=== PATIENT | female | born 1970 | race Caucasian/White ===

== ENCOUNTER 2023-01-11 15:16 | Inpatient (IN) ==
[2023-01-11] MEDS ORDERED: CARDIZEM INJ IVP STA (15:37)
[2023-01-11] MEDS ORDERED: LOPRESSOR PO STA (15:45)
--- NOTE | 2023-01-11 15:51 | ED.PDOC ---
General ED Provider: Dr. GILDARDO AGRAWAL MD Chief Complaint: Shortness of Air Stated Complaint: shortness of breath on and off for one week, got worse since thursday former smoker, smoked for 20 years, quit 10 years ago recent URI, treated with antibiotic father had Afib No thyroid issues, drinks alcohol occasionally, no drug use No fever,chest pain, abdominal pain, diarrhea or urinary symptoms Time Seen by Provider: 01/11/23 15:31 Information Source: Patient Nursing and Triage Documentation Reviewed and Agree: Yes Does patient meet sepsis criteria?: No System Inflammatory Response Syndrome: Not Applicable Sepsis Protocol: For patient's 13 years and over: Temp is 96.8 and below OR 101 and greater Pulse >90 BPM Resp >20/minute Acutely Altered Mental Status Are patient's symptoms suggestive of a new infection, such as: -Pneumonia -Skin, Soft Tissue -Endocarditis -UTI -Bone, Joint Infection -Implantable Device -Acute Abdominal Infection -Wound Infection -Meningitis -Blood Stream Catheter Infection -Unknown Review of Systems Review Of Systems Constitutional: Reports No symptoms Eyes: Reports No symptoms Ears, Nose, Mouth, Throat: Reports No symptoms Respiratory: Reports Short of air Cardiac: Reports Irregular heart rate GI: Reports No symptoms : Reports No symptoms Musculoskeletal: Reports No symptoms Skin: Reports No symptoms Neurological: Reports No symptoms Endocrine: Reports No symptoms Hematologic/Lymphatic: Reports No symptoms All Other Systems: Reviewed and Negative Physical Exam Physical Exam Appearance: Reports Well-appearing Ill-appearing: None Pain Distress: None Eyes: Reports DESIREE ENT: Reports Ears normal, Nose normal and Oropharynx normal Neck: Supple Respiratory: Reports Airway patent, Breath sounds clear and Breath sounds equal Cardiovascular: Reports No murmur, Irregular rhythm and Tachycardia GI/: Reports Soft, Nontender and No masses Musculoskeletal: Reports Normal strength and ROM intact Skin: Reports Warm and Normal color Neurological: Reports Sensation intact and Motor intact Psychiatric: Reports Affect appropriate Interpretation EKG Interpretation Time of EKG #1: 15:30 Rate: Tachy Rhythm: Other (Afib) [place]: NL ST Segment: Normal Interpretation: Afib w RVR, no specific st changs, no signs of ischemia EKG Interpretation By: ED Physician Time of EKG #2: 17:14 Rate: Tachy Rhythm: Other (Afib) Ectopy: None [place]: NL ST Segment: Normal EKG Interpretation: A fib w RVR, non specific t wave abnormality, no acute ischemia EKG Interpretation By: ED Physician Critical Care Note Critical Care Note Total Critical Care Time (mins): 0 Course Course 01/11/23 15:35 01/11/23 15:35 Orders, Labs, Meds: Lab Review 01/11/23 01/11/23 15:35 17:35 WBC 5.00 RBC 4.64 Hgb 14.3 Hct 43.8 MCV 94.4 MCH 30.8 MCHC 32.6 RDW Coeff of Gabriel 15.6 H Plt Count 267 Immature Gran % (Auto) 0.2 Neut % (Auto) 70.6 Lymph % (Auto) 21.4 Grady % (Auto) 6.0 Eos % (Auto) 1.4 Baso % (Auto) 0.4 Neut # (Auto) 3.5 Lymph # (Auto) 1.1 Grady # (Auto) 0.3 L Eos # (Auto) 0.1 Baso # (Auto) 0.0 Immature Gran # (Auto) 0.0 Sodium 138.2 Potassium 3.04 L Chloride 103.5 Carbon Dioxide 28.6 Anion Gap 9.14 BUN 8.0 Creatinine 0.75 Estimated GFR (MDRD) 81.00 BUN/Creatinine Ratio 10.66 Glucose 110.9 H Calcium 9.01 Total Bilirubin 1.10 AST 114.8 H ALT 120.0 H Alkaline Phosphatase 152.9 H Troponin I < 0.012 Total Protein 7.55 Albumin 4.33 Globulin 3.22 Albumin/Globulin Ratio 1.34 TSH 4.000 Urine Color Dark Urine Clarity Clear Urine pH 6.0 Ur Specific [place] 1.020 Urine Protein Negative Urine Glucose (UA) Negative Urine Ketones Negative Urine Blood Negative Urine Nitrite Negative Urine Bilirubin 1+ H Urine Urobilinogen 2.0 H Ur Leukocyte Esterase Negative Urine Opiates Screen Negative Ur Oxycodone Screen Negative Urine Methadone Screen Negative Ur Propoxyphene Screen Negative Ur Barbiturates Screen Negative U Tricyclic Antidepress Positive H Ur Phencyclidine Scrn Negative Ur Amphetamine Screen Positive H U Methamphetamines Scrn Negative U Benzodiazepines Scrn Negative Urine Cocaine Screen Negative U Cannabinoids Screen Positive H Orders Category Date Time Status EKG-(ED ONLY) Stat CARDIO 01/11/23 15:31 Completed EKG-(ED ONLY) Stat CARDIO 01/11/23 17:14 Completed Monitor [ED JET MAN APPLIED] .ONCE EMERGENCY 01/11/23 15:35 Active OXYGEN [ED APPLY O2] .ONCE EMERGENCY 01/11/23 15:35 Active CBC W/ AUTO DIFF Stat LAB 01/11/23 15:35 Completed CMP [COMPREHENSIVE METABOLIC PANEL] Stat LAB 01/11/23 15:35 Completed DRUG SCREEN (RAPID FOR ED) [DRUG SCREEN, URINE, RAPID] LAB 01/11/23 17:35 Completed Stat TROPONIN I Stat LAB 01/11/23 15:35 Completed TSH [THYROID STIMULATING HORMONE] Stat LAB 01/11/23 15:35 Completed URINALYSIS C & S IF INDICATED Stat LAB 01/11/23 17:35 Completed Diltiazem HCl [Cardizem Inj] Meds 01/11/23 15:37 Discontinued 15 mg IVP ONCE STA Metoprolol Tartrate [Lopressor] Meds 01/11/23 15:45 Discontinued 25 mg PO ONCE STA CXR [CHEST, 1V AP ONLY] Stat RADS 01/11/23 15:32 Completed Medications Generic Name Dose Route Start Last Admin Trade Name Freq PRN Reason Stop Dose Admin Enoxaparin Sodium 40 mg 01/11/23 21:00 Enoxaparin Sodium 40 Mg/0.4 Ml Syr SUBCUT DAILY JOSE Diltiazem HCl 125 mg/ Sodium 125 mls @ 5 mls/hr 01/11/23 19:00 01/11/23 19:16 Chloride IV 5 mg/hr TITRATION JOSE 5 mls/hr Administration Protocol 5 MG/HR Metoprolol Tartrate 50 mg 01/12/23 09:00 Metoprolol Tartrate 50 Mg Tablet PO BID JOSE Discontinued Medications Generic Name Dose Route Start Last Admin Trade Name Freq PRN Reason Stop Dose Admin Diltiazem HCl 15 mg 01/11/23 15:37 01/11/23 15:46 Diltiazem Hcl Inj 25 Mg/5 Ml Vial IVP 01/11/23 15:38 15 mg ONCE STA Administration Metoprolol Tartrate 25 mg 01/11/23 15:45 01/11/23 15:49 Metoprolol Tartrate 25 Mg Tablet PO 01/11/23 15:46 25 mg ONCE STA Administration Potassium Chloride 60 meq 01/11/23 18:46 01/11/23 19:20 Potassium Chloride 20 Meq Tab PO 01/11/23 18:47 60 meq ONCE ONE Administration Vital Signs: Temp Pulse Resp BP Pulse Ox 01/11/23 15:21 97.1 F L 149 H 22 H 152/119 H 95 . 52 years old female with a history of COPD former smoker smoked for 20 years quit 10 years ago who came to the ER for shortness of breath. As per patient the shortness of breath has been going on and off for 1 week but got worse since last Thursday. Patient drinks alcohol occasionally, no drugs no thyroid problems EKG showed A-fib with RVR at a rate of 150 pushed IV 15 mg of Cardizem heart rate is improving now around 115. I spoke with Dr. Olivares vice president of software engineering regarding the patient and he recommended to start the patient on Cardizem drip and metoprolol 50 mg twice and Lovenox 40 mg subcutaneous once a day and echocardiogram admit her to inpatient service, I also spoke with our hospitalist Danny and discussed the case with her and she agreed to admit the patient to her services. EDUARDO Risk Score EDUARDO Risk Score: Risk Score Odds of by 30D 0 0.1 (0.1-0.2) 1 0.3 (0.2-0.3) 2 0.4 (0.3-0.5) 3 0.7 (0.6-0.9) 4 1.2 (1.0-1.5) 5 2.2 (1.9-2.6) 6 3.0 (2.5-3.6) 7 4.8 (3.8-6.1) Discharge Plan Discharge Patient Disposition: ADMITTED INPATIENT Discharge Problem: Transaminitis, Atrial fibrillation with RVR Did you review [place] [employer] DIRECTOR for ALL controlled substances?: Not Applicable ED Provider: GILDARDO AGRAWAL Condition: Stable Physician Progress Note: []
--- NOTE | 2023-01-11 15:52 | DI ---
EXAM: SINGLE VIEW CHEST. HISTORY: Shortness of breath COMPARISON: None. FINDINGS: The heart is on the upper limits of normal in size. Pulmonary vascularity is within normal limits. A small right pleural effusion is seen. Bibasilar interstitial opacities are seen. No cholo dence of pneumothorax is seen. Osseous structures are unremarkable. IMPRESSION: Small right pleural effusion. Bibasilar interstitial opacities which can be seen with interstitial edema.
[2023-01-11 15:56] LABS: BASOPHILS % (AUTO) 0.4 % (0.0-3.0); EOSINOPHILS # (AUTO) 0.1 K/ul (0.0-0.7); EOSINOPHILS % (AUTO) 1.4 % (0.0-7.0); HEMATOCRIT 43.8 % (37.0-47.0); HEMOGLOBIN 14.3 g/dl (12.0-16.0); IMMATURE GRANULOCYTE % (AUTO) 0.2 % (0.0-5.0); LYMPHOCYTES # (AUTO) 1.1 K/uL (0.60-3.4); LYMPHOCYTES % (AUTO) 21.4 (10.0-50.0); MEAN CORPUSCULAR HEMOGLOBIN 30.8 pg (27.0-31.0); MEAN CORPUSCULAR HGB CONC 32.6 (31.8-35.4); MEAN CORPUSCULAR VOLUME 94.4 fl (81.0-99.0); MONOCYTES # (AUTO) 0.3 K/uL (0.4-2.0); NEUTROPHILS # (AUTO) 3.5 K/ul (2.0-6.9); NEUTROPHILS % (AUTO) 70.6 % (42.2-75.2); PLATELET COUNT 267 10^3/uL (140-440); RDW COEFFICIENT OF VARIATION 15.6 % (11.6-14.8); RED BLOOD COUNT 4.64 10^6/ul (4.20-5.40)
[2023-01-11 16:08] LABS: ALBUMIN 4.33 g/dL (3.5-5.0); ALKALINE PHOSPHATASE 152.9 U/L (38-126); ASPARTATE AMINO TRANSFERASE 114.8 U/L (14-36); CALCIUM 9.01 mg/dL (8.4-10.2); CARBON DIOXIDE 28.6 mmol/L (22-30.0); CHLORIDE 103.5 mmol/L (98-107); CREATININE 0.75 mg/dL (0.60-1.30); GLUCOSE 110.9 mg/dL (74-106); POTASSIUM 3.04 mmol/L (3.5-5.1); SODIUM 138.2 mmol/L (134.5-145); TOTAL PROTEIN 7.55 g/dL (6.3-8.2)
[2023-01-11 16:21] LABS: TROPONIN I < 0.012 ng/ml (0.0000-0.120)
[2023-01-11 17:43] LABS: BILIRUBIN,URINE 1+ (NEGATIVE); CLARITY,URINE Clear (CLEAR); COLOR,URINE Dark (YELLOW); GLUCOSE, URINE (UA) Negative (NEGATIVE); KETONES,URINE Negative (NEGATIVE); LEUKOCYTE ESTERASE ,URINE Negative (NEGATIVE); NITRITE,URINE Negative (NEGATIVE); PROTEIN,URINE Negative (NEGATIVE); URINE, BLOOD Negative (NEGATIVE)
[2023-01-11 17:53] LABS: AMPHETAMINE SCREEN,URINE POSITIVE (NEGATIVE); BARBITURATE SCREEN,URINE NEGATIVE (NEGATIVE); BENZODIAZEPINES SCREEN,URINE NEGATIVE (NEGATIVE); CANNABINOID SCREEN,URINE POSITIVE (NEGATIVE); COCAIN SCREEN,URINE NEGATIVE (NEGATIVE); METHADONE URINE SCREEN NEGATIVE (NEGATIVE); METHAMPHETAMINES SCREEN,URINE NEGATIVE (NEGATIVE); OPIATE SCREEN,URINE NEGATIVE (NEGATIVE); OXYCODONE URINE SCREEN NEGATIVE (NEGATIVE); PHENCYCLIDINE SCREEN,URINE NEGATIVE (NEGATIVE); PROPOXYPHENE URINE SCREEN NEGATIVE (NEGATIVE); TRICYCLIC ANTIDEPRESSANTS URIN POSITIVE (NEGATIVE)
[2023-01-11] MEDS ORDERED: K-DUR PO ONE (18:46)
[2023-01-11] MEDS: CARDIZEM 125 MG in SODIUM CHLORIDE 100ML 100 ML IV SCH (19:16)
[2023-01-11] MEDS ORDERED: TYLENOL PO PRN (20:24)
[2023-01-11] MEDS: ZOFRAN 4 MG/2 ML IVP PRN (20:27)
[2023-01-11 20:44] VITALS: BMI 36.3
[2023-01-11] MEDS: LOVENOX SUBCUT SCH (21:20)
[2023-01-12] MEDS: ZOFRAN 4 MG/2 ML IVP PRN ×2 (04:32→11:02)
[2023-01-12 05:25] LABS: BASOPHILS % (AUTO) 0.7 % (0.0-3.0); EOSINOPHILS # (AUTO) 0.1 K/ul (0.0-0.7); EOSINOPHILS % (AUTO) 1.4 % (0.0-7.0); HEMATOCRIT 39.2 % (37.0-47.0); HEMOGLOBIN 12.3 g/dl (12.0-16.0); IMMATURE GRANULOCYTE % (AUTO) 0.5 % (0.0-5.0); LYMPHOCYTES # (AUTO) 0.9 K/uL (0.60-3.4); LYMPHOCYTES % (AUTO) 20.1 (10.0-50.0); MEAN CORPUSCULAR HEMOGLOBIN 30.2 pg (27.0-31.0); MEAN CORPUSCULAR HGB CONC 31.4 (31.8-35.4); MEAN CORPUSCULAR VOLUME 96.3 fl (81.0-99.0); MONOCYTES # (AUTO) 0.3 K/uL (0.4-2.0); MONOCYTES % (AUTO) 7.4 (0-10); NEUTROPHILS % (AUTO) 69.9 % (42.2-75.2); PLATELET COUNT 242 10^3/uL (140-440); RDW COEFFICIENT OF VARIATION 15.7 % (11.6-14.8); RED BLOOD COUNT 4.07 10^6/ul (4.20-5.40); WHITE BLOOD COUNT 4.33 K/ul (4.6-10.2)
[2023-01-12 05:39] LABS: ALANINE AMINOTRANSFERASE 106.8 U/L (0-35); ALBUMIN 3.51 g/dL (3.5-5.0); ALKALINE PHOSPHATASE 133.3 U/L (38-126); ASPARTATE AMINO TRANSFERASE 108.2 U/L (14-36); BILIRUBIN,TOTAL 1.17 mg/dL (0.2-1.3); BLOOD UREA NITROGEN 9.2 mg/dL (7-17); CALCIUM 8.49 mg/dL (8.4-10.2); CHLORIDE 106.3 mmol/L (98-107); CREATININE 0.66 mg/dL (0.60-1.30); POTASSIUM 3.65 mmol/L (3.5-5.1); SODIUM 134.7 mmol/L (134.5-145); TOTAL PROTEIN 6.27 g/dL (6.3-8.2)
[2023-01-12 05:40] LABS: CHOLESTEROL 119.6 mg/dL (0-200); HDL CHOLESTEROL 56.5 mg/dL (35-80); TRIGLYCERIDES 100.6 mg/dL (0-150)
[2023-01-12] MEDS ORDERED: K-DUR PO ONE (08:27)
[2023-01-12] MEDS: LOPRESSOR PO SCH ×2 (09:02→20:18)
[2023-01-12] MEDS: LOVENOX SUBCUT SCH (09:02)
--- NOTE | 2023-01-12 09:03 | PCM ---
Date of Service Date Seen by Provider: 01/12/23 Time Seen by Provider: 08:30 Admit Day/Time Admission Date: 01/11/23 Admission Time: 18:28 Reason for Admission Chief Complaint: A-FIB Hospital Provider Hospital Provider: INEZ WILKERSON PA-C, [facility] Primary Care Physician Primary Care Physician: JENNYFER SELLERS [facility] Discussed With Consultants Discussed With: Dr. Marisa Olivares, Cardiology History of Present Illness History of Present Illness: Patient is a 52 year old female with pmhx of iron deficiency anemia, depression, anxiety, vitamin d deficiency who presented to ER with 1 week history of shortness of breath and palpitations on and off. It was progressively getting worse since /Thursday. She thought her iron was low again and trying to wait it out to see her PCP this week. She denies chest pain, edema, or personal cardiac history. In the ER she was found to be in A fib RVR HR 150s. She was given cardizem 15 mg IVP then Metoprolol 25 PO and lovenox 40. Was later started on Cardizem drip. CXR negative. Labs unremarkable. K+ on low end of normal. Dr. Reji Olivares was consulted from ER and will see patient. Patient admitted to SCU. This AM patient is feeling much better. HR in 80s. Nurse tried to wean Cardizem drip down but her HR went to above 100, cardizem drip increased back to 8. Pt denies cp, sob, palpitations this morning. Eating breakfast. LFTs mildly elevated, unable to get US until tomorrow. Patient has concerns regarding staying tonight due to having pets at home. Case Discussed With Case Discussed With: Patient's case was discussed with the ER Physicians, Dr. Angulo Sayed. [facility] Medical History Anemia D64.9 - Anemia, unspecified (ICD-10) Depression F32.A - Depression, unspecified (ICD-10) Vitamin D deficiency E55.9 - Vitamin D deficiency, unspecified (ICD-10) Surgical History (Updated 01/12/23 @ 09:05 by INEZ WILKERSON PA-C) H/O: hysterectomy Z90.710 - Acquired absence of both cervix and uterus (ICD-10) History of cholecystectomy Z90.49 - Acquired absence of other specified parts of digestive tract (ICD- 10) Family History FATHER Myocardial infarct CHF (congestive heart failure) Hypertension Mother Hypertension Social History (Updated 01/12/23 @ 09:06 by INEZ WILKERSON PA-C) Smoking and tobacco status: Former smoker Tobacco: How many years used: 20 How long ago did patient quit smokin years ago Details: Occasional social drink Substance use type: does not use Additional social history: Lives at home alone with her cat. Allergies Allergies Allergy/AdvReac Type Severity Reaction Status Date / Time cephalosporins AdvReac Uncoded 01/11/23 15:26 Current Medications Home Medications desvenlafaxine succinate 50 mg tablet,extended release 24 hr (Pristiq) 50 mg PO DAILY 01/11/23 [History Confirmed 01/11/23 Last Taken Unknown] gabapentin 300 mg capsule 300 mg PO TID 01/11/23 [History Confirmed 01/11/23 Last Taken Unknown] omeprazole 20 mg capsule,delayed release 20 mg PO DAILY 01/11/23 [History Confirmed 01/11/23 Last Taken Unknown] bupropion HCl 300 mg 24 hr tablet, extended release (Wellbutrin XL) 300 mg PO DAILY 01/12/23 [History Confirmed 01/12/23 Last Taken 01/11/23] Home Acetaminophen (Acetaminophen 325 Mg Tablet) 650 mg PO Q4H PRN PRN Reason: Pain Bupropion HCl (Bupropion Hcl 150 Mg Tab.Er.24h) 300 mg PO DAILY [facility] Last Admin: 01/12/23 11:29 Dose: 300 mg Diltiazem HCl (Diltiazem Hcl 60 Mg Tablet) 60 mg PO Q12HR [facility] Last Admin: 01/12/23 10:53 Dose: 60 mg Enoxaparin Sodium (Enoxaparin Sodium 40 Mg/0.4 Ml Syr) 40 mg SUBCUT DAILY [facility] Last Admin: 01/12/23 09:02 Dose: 40 mg Gabapentin (Gabapentin 300 Mg Capsule) 300 mg PO TID [facility] Last Admin: 01/12/23 11:29 Dose: 300 mg Diltiazem HCl 125 mg/ Sodium (Chloride) 125 mls @ 5 mls/hr IV TITRATION [facility]; Protocol Last Admin: 01/12/23 09:36 Dose: 8 mg/hr, 8 mls/hr Metoprolol Tartrate (Metoprolol Tartrate 50 Mg Tablet) 50 mg PO BID [facility] Last Admin: 01/12/23 09:02 Dose: 50 mg Non-Formulary Medication (Desvenlafaxine Succinate [Pristiq]) 50 mg PO DAILY [facility] Last Admin: 01/12/23 11:30 Dose: Not Given Omeprazole (Omeprazole 20 Mg Capsule.Dr) 20 mg PO QDAC [facility] Ondansetron HCl (Ondansetron Hcl/Pf 4 Mg/2 Ml Sdv) 4 mg IVP Q6H PRN PRN Reason: Nausea / Vomiting Last Admin: 01/12/23 11:02 Dose: 4 mg Discontinued Medications Amiodarone HCl (Amiodarone Hcl 200 Mg Tablet) 200 mg PO ONCE ONE Stop: 01/12/23 11:00 Last Admin: 01/12/23 11:29 Dose: 200 mg Diltiazem HCl (Diltiazem Hcl Inj 25 Mg/5 Ml Vial) 15 mg IVP ONCE STA Stop: 01/11/23 15:38 Last Admin: 01/11/23 15:46 Dose: 15 mg Metoprolol Tartrate (Metoprolol Tartrate 25 Mg Tablet) 25 mg PO ONCE STA Stop: 01/11/23 15:46 Last Admin: 01/11/23 15:49 Dose: 25 mg Potassium Chloride (Potassium Chloride 20 Meq Tab) 60 meq PO ONCE ONE Stop: 01/11/23 18:47 Last Admin: 01/11/23 19:20 Dose: 60 meq Potassium Chloride (Potassium Chloride 20 Meq Tab) 20 meq PO ONCE ONE Stop: 01/12/23 08:28 Last Admin: 01/12/23 09:02 Dose: 20 meq Review of Systems Constitutional: Denies Fatigue, Recent Weight Loss, Recent Weight Gain, Chills or Weakness Head: Reports Normocephalic and Atraumatic Eyes: Reports No symptoms Ears: Reports No symptoms Nose: Reports No symptoms Mouth: Reports No symptoms Throat: Reports No symptoms Cardiovascular: Reports Irregular Heartbeat and Palpitations; Denies Chest pain or Chest Pressure Respiratory: Reports Shortness of air; Denies Cough or Wheeze Gastrointestinal: Denies Nausea, Vomiting, Diarrhea or Constipation Genitourinary: Denies Dysuria or Frequency Hematology: Reports Anemia Neurological: Denies Headache, Dizziness, Syncope or Loss of Conciousness Psychiatric: Reports Depression and Anxiety; Denies Suicidal Physical examination Most Recent Vital Signs: Most Recent Vital Signs Temperature 97.3 F L 01/12/23 05:50 Temperature Source Temporal Artery Scan 01/12/23 05:50 Temperature Source Infrared 01/11/23 15:21 Pulse Rate 88 01/12/23 08:00 Respiratory Rate 15 01/12/23 08:00 Blood Pressure 127/90 01/12/23 08:00 Blood Pressure Mean 102 01/12/23 08:00 Blood Pressure Left Arm 124/92 01/11/23 20:21 Blood Pressure Location Right Arm 01/12/23 08:00 Blood Pressure Position Supine 01/12/23 08:00 O2 Sat by Pulse Oximetry 98 01/12/23 08:00 Oxygen Delivery Method Room Air 01/12/23 08:00 Oxygen Flow Rate 2 01/12/23 05:04 Height 5 ft 9 in 01/11/23 20:21 Weight 246 lb 01/11/23 20:21 Telemetry Type Remote Telemetry 01/12/23 07:00 Telemetry Monitoring Continues 01/12/23 07:00 Irregular Telemetry Rate (Approximate) 100-110 BPM 01/12/23 01:00 Telemetry Heart Rate 97 01/12/23 07:00 Telemetry SPO2 90 L 01/11/23 20:17 EKG QRS Interval 0.02 L 01/12/23 07:00 Telemetry Strip Reading Afib 01/12/23 07:00 Appearance: Positive Well-appearing, Well-nourished, No Apparent Distress and Alert and Oriented x3 Skin: Positive Dotsero, Warm, Good Turgor and Good Color HEENT: Positive Normocephalic and Atraumatic Neck: Positive Supple and Midline Trachea Chest/Lungs: Positive Symmetrical With Equal Breath Sounds and Clear to Auscultation Bilaterally; Negative Rales, Rhonci or Wheezes Heart: Positive Irregular Rhythm; Negative Murmur GI/: Positive Soft, Nontender, Bowel Sounds Normal and No Distention Musculoskeletal: Positive Normal Gait and Station Extremities: Negative Edema Neurological: Positive Sensation Intact, Motor intact, Cranial Nerves Intact, Alert, Oriented and Muscle Strength 5/5 in Upper and Lower Extremities Bilaterally Psychiatric: Positive Oriented x4, Appropriate Mood and Appropriate Affect Labs This Visit Labs This Visit: Labs This Visit 01/11/23 01/11/23 01/12/23 15:35 17:35 04:40 WBC 5.00 4.33 L RBC 4.64 4.07 L Hgb 14.3 12.3 Hct 43.8 39.2 MCV 94.4 96.3 MCH 30.8 30.2 MCHC 32.6 31.4 L RDW Coeff of Gabriel 15.6 H 15.7 H Plt Count 267 242 Immature Gran % (Auto) 0.2 0.5 Neut % (Auto) 70.6 69.9 Lymph % (Auto) 21.4 20.1 [place] % (Auto) 6.0 7.4 Eos % (Auto) 1.4 1.4 Baso % (Auto) 0.4 0.7 Neut # (Auto) 3.5 3.0 Lymph # (Auto) 1.1 0.9 [place] # (Auto) 0.3 L 0.3 L Eos # (Auto) 0.1 0.1 Baso # (Auto) 0.0 0.0 Immature Gran # (Auto) 0.0 0.0 Sodium 138.2 134.7 Potassium 3.04 L 3.65 Chloride 103.5 106.3 Carbon Dioxide 28.6 26.0 Anion Gap 9.14 6.05 BUN 8.0 9.2 Creatinine 0.75 0.66 Estimated GFR (MDRD) 81.00 94.00 BUN/Creatinine Ratio 10.66 13.93 Glucose 110.9 H 116.0 H Calcium 9.01 8.49 Magnesium Total Bilirubin 1.10 1.17 AST 114.8 H 108.2 H ALT 120.0 H 106.8 H Alkaline Phosphatase 152.9 H 133.3 H Troponin I < 0.012 Total Protein 7.55 6.27 L Albumin 4.33 3.51 Globulin 3.22 2.76 Albumin/Globulin Ratio 1.34 1.27 Triglycerides 100.6 Cholesterol 119.6 LDL Cholesterol, Calc 43 VLDL Cholesterol 20 HDL Cholesterol 56.5 Cholesterol/HDL Ratio 2.1 L TSH 4.000 Free T4 1.79 Urine Color Dark Urine Clarity Clear Urine pH 6.0 Ur Specific [place] 1.020 Urine Protein Negative Urine Glucose (UA) Negative Urine Ketones Negative Urine Blood Negative Urine Nitrite Negative Urine Bilirubin 1+ H Urine Urobilinogen 2.0 H Ur Leukocyte Esterase Negative Urine Opiates Screen Negative Ur Oxycodone Screen Negative Urine Methadone Screen Negative Ur Propoxyphene Screen Negative Ur Barbiturates Screen Negative U Tricyclic Antidepress Positive H Ur Phencyclidine Scrn Negative Ur Amphetamine Screen Positive H U Methamphetamines Scrn Negative U Benzodiazepines Scrn Negative Urine Cocaine Screen Negative U Cannabinoids Screen Positive H 01/12/23 08:36 WBC RBC Hgb Hct MCV MCH MCHC RDW Coeff of Gabriel Plt Count Immature Gran % (Auto) Neut % (Auto) Lymph % (Auto) [place] % (Auto) Eos % (Auto) Baso % (Auto) Neut # (Auto) Lymph # (Auto) [place] # (Auto) Eos # (Auto) Baso # (Auto) Immature Gran # (Auto) Sodium Potassium Chloride Carbon Dioxide Anion Gap BUN Creatinine Estimated GFR (MDRD) BUN/Creatinine Ratio Glucose Calcium Magnesium 2.19 Total Bilirubin AST ALT Alkaline Phosphatase Troponin I Total Protein Albumin Globulin Albumin/Globulin Ratio Triglycerides Cholesterol LDL Cholesterol, Calc VLDL Cholesterol HDL Cholesterol Cholesterol/HDL Ratio TSH Free T4 Urine Color Urine Clarity Urine pH Ur Specific [place] Urine Protein Urine Glucose (UA) Urine Ketones Urine Blood Urine Nitrite Urine Bilirubin Urine Urobilinogen Ur Leukocyte Esterase Urine Opiates Screen Ur Oxycodone Screen Urine Methadone Screen Ur Propoxyphene Screen Ur Barbiturates Screen U Tricyclic Antidepress Ur Phencyclidine Scrn Ur Amphetamine Screen U Methamphetamines Scrn U Benzodiazepines Scrn Urine Cocaine Screen U Cannabinoids Screen Imaging Imagining: EXAM: SINGLE VIEW CHEST. HISTORY: Shortness of breath COMPARISON: None. FINDINGS: The heart is on the upper limits of normal in size. Pulmonary vascularity is within normal limits. A small right pleural effusion is seen. Bibasilar interstitial opacities are seen. No evidence of pneumothorax is seen. Osseous structures are unremarkable. IMPRESSION: Small right pleural effusion. Bibasilar interstitial opacities which can be seen with interstitial edema. EKG Interpretation EKG Interpretation: A fib RVR, HR 150s, no stemi Review Statement Review Statement: I have independently reviewed and interpreted the labs/EKGs/imaging that were ordered by the ER provider. I have reviewed all outside records that are available currently in our EMR including imaging/notes/labs from previous visits. Plan Plan: 1. A fib RVR, new onset - Continue cardizem drip, wean if able. Metoprolol 50 BID PO ordered. Echo ordered. Check mag and a1c. CHADVASC score of 1 currently. Lovenox prophylactic dose ordered. TSH normal. Goal of K+ [address] Marisa Olivares/cards consult, appreciate recs. 2. Elevated LFTs - US RUQ ordered for tomorrow morning. Likely fatty disease. Monitor CMP. 3. History of iron deficiency anemia - Hgb >12. Continue monitoring outpatient. DVT Prophylaxis: Lovenox Time Spent: Greater than 80 minutes spent with patient, 50% of the time spent with this patient was devoted to counseling and coordination of care. [facility]in minutes spent discussing advance care planning. FULL CODE. Admit to: Inpatient Discussed Plan of Care with Dr. Mila Olivares. Medications Medication Orders: Medications Ordered Category Date Time Status Acetaminophen [Tylenol] Meds 01/11/23 20:24 Active 650 mg PO Q4H PRN Diltiazem HCl [Cardizem] 125 mg Meds 01/11/23 19:00 Active 0.9 % Sodium Chloride [Sodium Chloride 100Ml] 100 ml IV TITRATION Enoxaparin Sodium [Lovenox] Meds 01/11/23 21:00 Active 40 mg SUBCUT DAILY Metoprolol Tartrate [Lopressor] Meds 01/12/23 09:00 Active 50 mg PO BID Ondansetron HCl/Pf [Zofran 4 mg/2 ml] Meds 01/11/23 20:24 Active 4 mg IVP Q6H PRN
[2023-01-12] MEDS: CARDIZEM 125 MG in SODIUM CHLORIDE 100ML 100 ML IV SCH ×2 (09:36→19:55)
[2023-01-12] MEDS: CARDIZEM PO SCH ×2 (10:53→20:17)
[2023-01-12] MEDS ORDERED: CORDARONE PO ONE ×2 (10:59→18:25)
[2023-01-12] MEDS ORDERED: NON-FORMULARY MEDICATION (Bupropion Hcl 100 mg tablet) PO SCH (11:00)
[2023-01-12] MEDS: NEURONTIN PO SCH ×3 (11:29→20:18)
[2023-01-12] MEDS: WELLBUTRIN XL PO SCH (11:29)
[2023-01-12] MEDS: DESVENLAFAXINE SUCCINATE 50 MG PO SCH (11:30)
[2023-01-12] MEDS ORDERED: REGLAN IVP PRN (14:01)
[2023-01-12] MEDS: PROTONIX IV IVP SCH (14:16)
[2023-01-12] MEDS: ELIQUIS PO SCH (20:17)
[2023-01-13] MEDS ORDERED: CORDARONE PO SCH (05:00)
[2023-01-13 05:01] LABS: BASOPHILS % (AUTO) 0.7 % (0.0-3.0); EOSINOPHILS # (AUTO) 0.1 K/ul (0.0-0.7); EOSINOPHILS % (AUTO) 1.4 % (0.0-7.0); HEMATOCRIT 39.6 % (37.0-47.0); HEMOGLOBIN 12.5 g/dl (12.0-16.0); IMMATURE GRANULOCYTE % (AUTO) 0.4 % (0.0-5.0); LYMPHOCYTES # (AUTO) 1.3 K/uL (0.60-3.4); LYMPHOCYTES % (AUTO) 22.5 (10.0-50.0); MEAN CORPUSCULAR HEMOGLOBIN 30.5 pg (27.0-31.0); MEAN CORPUSCULAR HGB CONC 31.6 (31.8-35.4); MEAN CORPUSCULAR VOLUME 96.6 fl (81.0-99.0); MONOCYTES # (AUTO) 0.6 K/uL (0.4-2.0); MONOCYTES % (AUTO) 9.7 (0-10); NEUTROPHILS # (AUTO) 3.7 K/ul (2.0-6.9); NEUTROPHILS % (AUTO) 65.3 % (42.2-75.2); PLATELET COUNT 257 10^3/uL (140-440); RDW COEFFICIENT OF VARIATION 15.9 % (11.6-14.8); WHITE BLOOD COUNT 5.69 K/ul (4.6-10.2)
[2023-01-13 05:13] LABS: ALANINE AMINOTRANSFERASE 149.2 U/L (0-35); ALBUMIN 3.43 g/dL (3.5-5.0); ALKALINE PHOSPHATASE 120.8 U/L (38-126); ASPARTATE AMINO TRANSFERASE 197.7 U/L (14-36); BILIRUBIN,TOTAL 1.38 mg/dL (0.2-1.3); BLOOD UREA NITROGEN 13.9 mg/dL (7-17); CALCIUM 8.05 mg/dL (8.4-10.2); CARBON DIOXIDE 18.9 mmol/L (22-30.0); CHLORIDE 104.4 mmol/L (98-107); CREATININE 0.82 mg/dL (0.60-1.30); GLUCOSE 118.1 mg/dL (74-106); POTASSIUM 4.08 mmol/L (3.5-5.1); SODIUM 132.9 mmol/L (134.5-145); TOTAL PROTEIN 6.19 g/dL (6.3-8.2)
[2023-01-13] MEDS: CARDIZEM 125 MG in SODIUM CHLORIDE 100ML 100 ML IV SCH (06:06)
[2023-01-13] MEDS ORDERED: PRILOSEC PO SCH (06:30)
--- NOTE | 2023-01-13 09:14 | PCM.PROG ---
Attending Provider: ATTENDING PROVIDER: Dr. INEZ WILKERSON PA-C This patient is seen with Leila Best, Nurse Practitioner. DATE OF SERVICE: 01/13/23 SUBJECTIVE: This 52 year old /WHITE F was hospitalized 01/11/23. Had 3rd dose of Amiodarone. Rate is down to 70s. Blood pressure has been improving and within normal limits. We will do PFT and order a Hepatitis panel due to elevated liver enzymes. The patient still remains in fib/flutter. She is noted to be positive for amphetamines and marijuana on drug screen. The patient also vapes. REVIEW OF SYSTEMS: CONSTITUTIONAL: No night sweats. Fatigue. No fever or chills. HEENT: Eyes: No visual changes. No eye pain. No eye discharge. ENT: No runny nose. No epistaxis. No sinus pain. No odynophagia. No congestion. RESPIRATORY: No cough, no congestion. No hemoptysis. Shortness of breath. CARDIOVASCULAR: No angina symptoms. No CHF symptoms. No atypical chest pain for CAD. Palpitations. No orthopnea.. GASTROINTESTINAL: No abdominal pain. No nausea or vomiting. No diarrhea or constipation. No hematemesis. No hematochezia. GENITOURINARY: No urgency. No frequency. No dysuria. No hematuria. No obstructive symptoms. No discharge. No pain. No significant abnormal bleeding. MUSCULOSKELETAL: No musculoskeletal pain; no joint swelling. NEUROLOGICAL: Awake, alert, oriented to time, place and person. No headache. No neck pain. No syncope. No seizures. No dizziness. PSYCHIATRIC: Not anxious. No depression. No suicidal thoughts. No homicidal thoughts. SKIN: No rash. No lesions. No wounds. ENDOCRINE: No unexplained weight loss. No weight gain. HEMATOLOGIC/LYMPHATIC: No anemia. No purpura. No petechiae. No prolonged or excessive bleeding. No palpable lymph nodes. PHYSICAL EXAMINATION: GENERAL: The patient is awake, alert and oriented, lying in bed in no distress. VITAL SIGNS: Temperature 98.6 F, Pulse 72, Respiratory Rate 15, BP 119/82, Pulse Ox 95% HEENT: Head normocephalic, atraumatic. Eyes: Extraocular muscles are intact. Pupils are equal, round and reactive to light and accommodation. Ears: No lesions. Nose appeared normal. Throat: No exudate or erythema. NECK: Supple. No JVD, no carotid bruit. No lymphadenopathy or thyromegaly. LUNGS: Diminished breath sounds. Clear to auscultation. Percussion note normal. Chest symmetrical. HEART: Irregular heart rate. S1, S2, no S3. No murmurs. No cyanosis or clubbing. No ascites. Pulses: Dorsalis pedis and posterior tibial pulses +1 to +2 both sides. ABDOMEN: Soft. Non-tender. Bowel sounds active. No CVA tenderness. No mass felt. EXTREMITIES: No edema. Full range of motion of all extremities, equal. NEUROLOGIC: No focal deficit. Cranial nerves II through XII are grossly intact. No headache. No double vision. SKIN: Not dry. Intact. Turgor-normal. LYMPHATIC: No palpable lymph nodes/no lymphedema. MUSCULOSKELETAL: Normal joints with no swelling. Muscle tone is normal. LAB REVIEW: 01/13/23 04:50 01/13/23 04:50 01/13/23 04:50: WBC 5.69, RBC 4.10 L, Hgb 12.5, Hct 39.6, MCV 96.6, MCH 30.5, MCHC 31.6 L, RDW Coeff of Gabriel 15.9 H, Plt Count 257, Immature Gran % (Auto) 0.4, Neut % (Auto) 65.3, Lymph % (Auto) 22.5, [place] % (Auto) 9.7, Eos % (Auto) 1.4, Baso % (Auto) 0.7, Neut # (Auto) 3.7, Lymph # (Auto) 1.3, [place] # (Auto) 0.6, Eos # (Auto) 0.1, Baso # (Auto) 0.0, Immature Gran # (Auto) 0.0, Sodium 132.9 L, Potassium 4.08, Chloride 104.4, Carbon Dioxide 18.9 L D, Anion Gap 13.68, BUN 13.9, Creatinine 0.82, Estimated GFR (MDRD) 73.00, BUN/Creatinine Ratio 16.95, Glucose 118.1 H, Calcium 8.05 L, Total Bilirubin 1.38 H, AST 197.7 H D, ALT 149.2 H D, Alkaline Phosphatase 120.8, Total Protein 6.19 L, Albumin 3.43 L, Globulin 2.76, Albumin/Globulin Ratio 1.24 01/12/23 09:11: Hemoglobin A1c 5.00 01/12/23 08:36: Magnesium 2.19 ASSESSMENT: Please see below. 1. New onset atrial fib/flutter 2. Positive Amphetamines/THC 3. Elevated Liver Enzymes 4. Former smoker, current vapor 4. Obesity PLAN: 1. PFT 2. Hepatis panel 3. Discontinue Cardizem drip Plan and coordination of the patient's care discussed in the presence of Ct Mri Technologist and nurse. SCRIBED BY: Malka MANNING scribed while in presence of service performed by Leila Best APRN on 01/13/23 ([id number])
--- NOTE | 2023-01-13 09:45 | PCM.PROG ---
Date/Time Seen Date Seen by Provider: 01/13/23 Time Seen by Provider: 08:30 Provider Provider: [facility] Chief Complaint Chief Complaint: A-FIB Subjective Subjective: Patient states she is feeling better today. No longer having palpitations. States she gets mildly short of breath when ambulating to the restroom but it is quickly resolved. Heart rate improved in the 70s and was able to wean off Cardizem drip this morning. Objective Appearance: Positive Well-appearing, Well-nourished, No Apparent Distress and Alert and Oriented x3 Chest/Lungs: Positive Symmetrical With Equal Breath Sounds and Clear to Auscultation Bilaterally Heart: Positive Irregular Rhythm; Negative Murmur GI/: Positive Soft, Nontender, Bowel Sounds Normal and No Distention Musculoskeletal: Positive Normal Gait and Station Neurological: Positive Cranial Nerves Intact, Alert, Oriented and Muscle Strength 5/5 in Upper and Lower Extremities Bilaterally Vital Signs Vital Signs: Vital Signs: Last 24 Hours 01/12/23 10:00 01/12/23 14:00 01/12/23 15:00 Temperature 95.3 F L 95.4 F L Temperature Source Temporal Artery Scan Temporal Artery Scan Pulse Rate 103 H 71 85 Pulse Rate [Apical] Respiratory Rate 16 20 22 H Blood Pressure 124/100 H 117/78 99/82 Blood Pressure Mean 108 91 87 Blood Pressure Location Right Arm Right Arm Right Arm Blood Pressure Position Sitting Sitting Supine O2 Sat by Pulse Oximetry 92 L 95 96 Oxygen Delivery Method Room Air Room Air Room Air Telemetry Type Telemetry Monitoring Irregular Telemetry Rate (Approximate) Telemetry Heart Rate Telemetry SPO2 EKG QRS Interval EKG QT Interval Telemetry Strip Reading 01/12/23 16:00 01/12/23 11:00 01/12/23 10:00 Temperature 95.7 F L Temperature Source Temporal Artery Scan Pulse Rate 85 81 Pulse Rate [Apical] Respiratory Rate 22 H 21 H Blood Pressure 99/82 124/87 Blood Pressure Mean 87 99 Blood Pressure Location Right Arm Right Arm Blood Pressure Position Supine Sitting O2 Sat by Pulse Oximetry 96 95 96 Oxygen Delivery Method Room Air Room Air Room Air Telemetry Type Telemetry Monitoring Irregular Telemetry Rate (Approximate) Telemetry Heart Rate Telemetry SPO2 EKG QRS Interval EKG QT Interval Telemetry Strip Reading 01/12/23 13:06 01/12/23 13:00 01/12/23 13:00 Temperature 95.8 F L Temperature Source Temporal Artery Scan Pulse Rate 83 Pulse Rate [Apical] Respiratory Rate 29 H Blood Pressure 107/87 Blood Pressure Mean 93 Blood Pressure Location Right Arm Blood Pressure Position Sitting O2 Sat by Pulse Oximetry 92 L Oxygen Delivery Method Room Air Room Air Telemetry Type Bedside Monitor Telemetry Monitoring Continues Irregular Telemetry Rate (Approximate) 90-100 BPM Telemetry Heart Rate 93 Telemetry SPO2 98 EKG QRS Interval 0.11 H EKG QT Interval Telemetry Strip Reading A-Flutter with BBB 01/12/23 17:00 01/12/23 17:45 01/12/23 19:00 Temperature 98.3 F Temperature Source Oral Pulse Rate 77 70 108 H Pulse Rate [Apical] Respiratory Rate 18 16 16 Blood Pressure 91/60 105/85 120/89 Blood Pressure Mean 70 91 99 Blood Pressure Location Left Arm Left Arm Left Arm Blood Pressure Position Sitting Sitting Sitting O2 Sat by Pulse Oximetry 96 95 94 L Oxygen Delivery Method Room Air Room Air Room Air Telemetry Type Telemetry Monitoring Irregular Telemetry Rate (Approximate) Telemetry Heart Rate Telemetry SPO2 EKG QRS Interval EKG QT Interval Telemetry Strip Reading 01/12/23 19:37 01/12/23 19:00 01/12/23 19:42 Temperature Temperature Source Pulse Rate 84 Pulse Rate [Apical] Respiratory Rate 18 Blood Pressure 99/75 Blood Pressure Mean 83 Blood Pressure Location Left Arm Blood Pressure Position Sitting O2 Sat by Pulse Oximetry 95 Oxygen Delivery Method Room Air Room Air Telemetry Type Bedside Monitor Telemetry Monitoring Continues Irregular Telemetry Rate (Approximate) 110-120 BPM Telemetry Heart Rate 118 H Telemetry SPO2 94 EKG QRS Interval 0.13 H EKG QT Interval 0.19 L Telemetry Strip Reading Has regular R to R for most of strip so appears SR then back to A- flutter 01/12/23 20:00 01/12/23 21:00 01/12/23 22:00 Temperature Temperature Source Pulse Rate 116 H 114 H Pulse Rate [Apical] 108 H Respiratory Rate 18 18 22 H Blood Pressure 114/87 104/74 Blood Pressure Mean 96 84 Blood Pressure Location Left Arm Left Arm Blood Pressure Position Sitting Sitting O2 Sat by Pulse Oximetry 95 95 Oxygen Delivery Method Room Air Room Air Room Air Telemetry Type Telemetry Monitoring Irregular Telemetry Rate (Approximate) Telemetry Heart Rate Telemetry SPO2 EKG QRS Interval EKG QT Interval Telemetry Strip Reading 01/12/23 22:45 01/13/23 00:00 01/13/23 01:00 Temperature Temperature Source Pulse Rate 90 86 Pulse Rate [Apical] Respiratory Rate 22 H 22 H Blood Pressure 115/82 112/83 Blood Pressure Mean 93 92 Blood Pressure Location Left Arm Left Arm Blood Pressure Position Sitting Sitting O2 Sat by Pulse Oximetry 95 95 Oxygen Delivery Method Room Air Room Air Telemetry Type Bedside Monitor Telemetry Monitoring Continues Irregular Telemetry Rate (Approximate) 70-80 BPM Telemetry Heart Rate 72 Telemetry SPO2 95 EKG QRS Interval 0.07 EKG QT Interval Telemetry Strip Reading A-Fib/Flutter 01/13/23 01:00 01/13/23 02:00 01/13/23 03:00 Temperature 97.6 F Temperature Source Oral Pulse Rate 68 72 68 Pulse Rate [Apical] Respiratory Rate 16 20 16 Blood Pressure 109/84 103/69 96/72 Blood Pressure Mean 92 80 80 Blood Pressure Location Left Arm Left Arm Left Arm Blood Pressure Position Sitting Sitting Sitting O2 Sat by Pulse Oximetry 95 94 L Oxygen Delivery Method Room Air Room Air Room Air Telemetry Type Telemetry Monitoring Irregular Telemetry Rate (Approximate) Telemetry Heart Rate Telemetry SPO2 EKG QRS Interval EKG QT Interval Telemetry Strip Reading 01/13/23 04:00 01/13/23 05:00 01/13/23 06:00 Temperature 97.7 F 98.6 F Temperature Source Oral Oral Pulse Rate 66 74 72 Pulse Rate [Apical] Respiratory Rate 16 20 20 Blood Pressure 105/79 112/87 114/93 H Blood Pressure Mean 87 95 100 Blood Pressure Location Left Arm Left Arm Left Arm Blood Pressure Position Sitting Sitting Sitting O2 Sat by Pulse Oximetry 96 96 96 Oxygen Delivery Method Room Air Room Air Room Air Telemetry Type Telemetry Monitoring Irregular Telemetry Rate (Approximate) Telemetry Heart Rate Telemetry SPO2 EKG QRS Interval EKG QT Interval Telemetry Strip Reading 01/13/23 07:00 01/13/23 07:00 01/13/23 07:44 Temperature Temperature Source Pulse Rate 62 72 Pulse Rate [Apical] Respiratory Rate 15 15 Blood Pressure 114/93 H 119/82 Blood Pressure Mean 100 94 Blood Pressure Location Right Arm Left Arm Blood Pressure Position Supine Supine O2 Sat by Pulse Oximetry 96 95 Oxygen Delivery Method Room Air Room Air Telemetry Type Bedside Monitor Telemetry Monitoring Continues Irregular Telemetry Rate (Approximate) 60-70 BPM Telemetry Heart Rate Telemetry SPO2 EKG QRS Interval 0.03 L EKG QT Interval Telemetry Strip Reading Aflutter/afib Lab Results Lab Results: Lab Results: Last 24 Hours 01/13/23 01/12/23 04:50 09:11 WBC 5.69 RBC 4.10 L Hgb 12.5 Hct 39.6 MCV 96.6 MCH 30.5 MCHC 31.6 L RDW Coeff of Gabriel 15.9 H Plt Count 257 Immature Gran % (Auto) 0.4 Neut % (Auto) 65.3 Lymph % (Auto) 22.5 [place] % (Auto) 9.7 Eos % (Auto) 1.4 Baso % (Auto) 0.7 Neut # (Auto) 3.7 Lymph # (Auto) 1.3 [place] # (Auto) 0.6 Eos # (Auto) 0.1 Baso # (Auto) 0.0 Immature Gran # (Auto) 0.0 Sodium 132.9 L Potassium 4.08 Chloride 104.4 Carbon Dioxide 18.9 L D Anion Gap 13.68 BUN 13.9 Creatinine 0.82 Estimated GFR (MDRD) 73.00 BUN/Creatinine Ratio 16.95 Glucose 118.1 H Hemoglobin A1c 5.00 Calcium 8.05 L Total Bilirubin 1.38 H AST 197.7 H D ALT 149.2 H D Alkaline Phosphatase 120.8 Total Protein 6.19 L Albumin 3.43 L Globulin 2.76 Albumin/Globulin Ratio 1.24 Additional Comments Additional Comments: I have independently reviewed and interpreted the labs/EKGs/imaging ordered during this hospital stay. I have reviewed outside records that are available in our EMR that pertain to medical stay including imaging/notes/labs from previous visits. EXAM: ULTRASOUND ABDOMINAL COMPLETE HISTORY: Elevated liver enzymes. TECHNIQUE: Sonography of the abdomen was performed. Images were obtained and stored in a permanent archive. Color Doppler images of the main portal vein were also obtained. COMPARISON: None. FINDINGS: Pancreas: Normal sonographic appearance of the head and body. Tail is partially obscured. Liver: Enlarged with diffusely hyper echogenic parenchyma. No focal lesion.- Normal antegrade flow within the main portal vein. Biliary: No duct dilation. Common bile duct measures 4-5 mm. Post chol ecystectomy. Spleen: No splenomegaly. No lesions. Right Kidney: No hydronephrosis. No lesions. No calculus. Left Kidney: No hydronephrosis. No lesions. No calculus. IVC: Patent on color Doppler. No abnormality on stratton scale image. Aorta: No aneurysmal dilatation in visualized portions. The distal aorta and perfusion obscured by bowel gas shadowing. Ascites: None. Urinary bladder: Bladder wall is thickened measuring 6 mm. IMPRESSION: Enlarged hyper echogenic liver consistent with steatosis. Thickened urinary bladder wall could be due cystitis. Correlate with urinalysis. Active Medications Active Medications: Medications Generic Name Dose Route Start Last Admin Trade Name Freq PRN Reason Stop Dose Admin Acetaminophen 650 mg 01/11/23 20:24 Acetaminophen 325 Mg Tablet PO Q4H PRN Pain Apixaban 5 mg 01/12/23 21:00 01/12/23 20:17 Apixaban 5 Mg Tab PO 5 mg BID JOSE Administration Bupropion HCl 300 mg 01/12/23 11:30 01/12/23 11:29 Bupropion Hcl 150 Mg Tab.Er.24h PO 300 mg DAILY JOSE Administration Diltiazem HCl 60 mg 01/12/23 10:15 01/12/23 20:17 Diltiazem Hcl 60 Mg Tablet PO 60 mg Q12HR JOSE Administration Gabapentin 300 mg 01/12/23 11:00 01/12/23 20:18 Gabapentin 300 Mg Capsule PO 300 mg TID JOSE Administration Metoclopramide HCl 5 mg 01/12/23 14:01 01/12/23 14:16 Metoclopramide Hcl 10 Mg/2 Ml IVP 5 mg Q6HR PRN Administration Nausea / Vomiting Metoprolol Tartrate 50 mg 01/12/23 09:00 01/12/23 20:18 Metoprolol Tartrate 50 Mg Tablet PO 50 mg BID JOSE Administration Non-Formulary Medication 50 mg 01/12/23 11:00 01/12/23 11:30 Desvenlafaxine Succinate [Pristiq] PO Not Given DAILY JOSE Omeprazole 20 mg 01/13/23 06:30 01/13/23 05:43 Omeprazole 20 Mg Capsule.Dr PO 20 mg QDAC JOSE Administration Ondansetron HCl 4 mg 01/11/23 20:24 01/12/23 11:02 Ondansetron Hcl/Pf 4 Mg/2 Ml Sdv IVP 4 mg Q6H PRN Administration Nausea / Vomiting Pantoprazole Sodium 40 mg 01/12/23 14:05 01/12/23 14:16 Pantoprazole Sodium 40 Mg Vial IVP 40 mg DAILY JOSE Administration Plan Plan: 1. A fib RVR, new onset - Per cardiology recs --> cardizem drip stopped this morning. Continuing amiodarone 200 mg PO q6hrs. Continue PO cardizem and metoprolol. Eliquis 5 mg bid started, chadvasc score considered 2 based on gender female and echo findings indicating underlying hypertension. Will give patient eliquis 30 day voucher prior to discharge. EP referral initiated with Dr. Reyes at [facility]. PFTs pending. Appreciate cards recs. 2. Elevated LFTs - Worsened this morning. US RUQ showing fatty liver disease. Hep panel pending. Monitor CMP. 3. History of iron deficiency anemia - Hgb >12. Continue monitoring outpatient. Review Statement Review Statement: I have personally discussed and reviewed the patient's visit/currently labs/imaging/decision making with Dr. Olivares, my supervising attending. Greater that 50 minutes spent with patient, 50% of the time spent with this patient was devoted to counseling and coordination of care.
[2023-01-13] MEDS: WELLBUTRIN XL PO SCH (10:01)
[2023-01-13] MEDS: PROTONIX IV IVP SCH (10:01)
[2023-01-13] MEDS: CARDIZEM PO SCH (10:01)
[2023-01-13] MEDS: LOPRESSOR PO SCH (10:02)
[2023-01-13] MEDS: ELIQUIS PO SCH (10:02)
[2023-01-13] MEDS: NEURONTIN PO SCH ×2 (10:02→15:09)
[2023-01-13] MEDS: DESVENLAFAXINE SUCCINATE 50 MG PO SCH (10:03)
--- NOTE | 2023-01-13 10:13 | US ---
EXAM: ULTRASOUND ABDOMINAL COMPLETE HISTORY: Elevated liver enzymes. TECHNIQUE: Sonography of the abdomen was performed. Images were obtained and stored in a permanent a rchive. Color Doppler images of the main portal vein were also obtained. COMPARISON: None. FINDINGS: Pancreas: Normal sonographic appearance of the head and body. Tail is partially obscured. Liver: Enlarged with diffusely hyper echogenic parenchyma. No focal lesion. - Normal antegrade flow within the main portal vein. Biliary: No duct dilation. Common bile duct measures 4-5 mm. Post cholecystectomy. Spleen: No splenomegaly. No lesions. Right Kidney: No hydronephrosis. No lesions. No calculus. Left Kidney: No hydronephrosis. No lesions. No calculus. IVC: Patent on color Doppler. No abnormality on stratton scale image. Aorta: No aneurysmal dilatation in visualized portions. The distal aorta and perfusion obscured by b owel gas shadowing. Ascites: None. Urinary bladder: Bladder wall is thickened measuring 6 mm. IMPRESSION: Enlarged hyper echogenic liver consistent with steatosis. Thickened urinary bladder wall could be due cystitis. Correlate with urinalysis.
[2023-01-13] MEDS ORDERED: CORDARONE PO ONE (12:00)
[2023-01-13 12:07] VITALS: TEMP 96.7
--- NOTE | 2023-01-13 13:02 | CONS ---
DATE OF CONSULTATION: 01/11/23 REASON FOR CONSULTATION: Atrial fibrillation with rapid ventricular response. HISTORY OF PRESENT ILLNESS: 52 year old white female came to the emergency room because of feeling short of breath and palpitation. The patient had these symptoms of three days. Prior to that the patient had severe case of bronchitis for 7 days. On further workup the patient had atrial flutter/fib with rate of 150 per minute and blood pressure was 150/97. The patient is COVID negative. REVIEW OF SYSTEMS: CONSTITUTIONAL: No night sweats. Mild fatigue. No fever or chills. HEENT: Eyes: No visual changes. No eye pain. No eye discharge. ENT: No sinus drainage. No epistaxis. No sinus pain. No sore throat. No odynophagia. No ear pain. No congestion. RESPIRATORY: No cough, no congestion. No hemoptysis. Mild shortness of breath. CARDIOVASCULAR: No angina symptoms. No CHF symptoms. No atypical chest pain for CAD. Palpitations off and on for past 48 hours prior to hospitalization. No orthopnea. Shortness of breath on exertion. GASTROINTESTINAL: No abdominal pain. No nausea or vomiting. No diarrhea or constipation. No hematemesis. No hematochezia. GENITOURINARY: No urgency. No frequency. No dysuria. No hematuria. No obstructive symptoms. No discharge. No pain. No significant abnormal bleeding. MUSCULOSKELETAL: No musculoskeletal pain. No joint swelling. NEUROLOGICAL: No headache. No neck pain. No syncope. No seizures. No dizziness. PSYCHIATRIC: Not anxious. No depression. No suicidal thoughts. No homicidal thoughts. SKIN: No rash. No lesions. No wounds. ENDOCRINE: No unexplained weight loss. No weight gain. HEMATOLOGIC/LYMPHATIC: No anemia. No purpura. No petechiae. No prolonged or excessive bleeding. No palpable lymph nodes. MEDICATIONS: Bupropion 300mg one a day Pristiq 50mg PO daily Gabapentin 300mg PO TID Omeprazole 20mg PO daily ALLERGIES: Cephalosporin PAST MEDICAL HISTORY/PAST SURGICAL HISTORY: The patient says that all her profile done several years ago in [facility] was normal. The patient is right now being followed by Nurse Practitioner at [facility]. According to her her blood pressure recordings have been normal. History of anemia several years ago for which she was given iron infusion, the cause of the anemia was not found. SOCIAL/PERSONAL/FAMILY HISTORY: The patient is single, living by herself. 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 Non-smoker. Drinks socially. Strong family history of heart disease; father had DC in younger age and mother of heart attack. History of atrial fibrillation in the family. PHYSICAL EXAMINATION: VITAL SIGNS: Temperature 98,pulse 130 per minute irregular, respiratory rate 18, blood pressure 140/92 and pulse ox 95% on room air. HEENT: Head normocephalic, atraumatic. Eyes: Extraocular muscles are intact. Pupils are equal, round and reactive to light and accommodation. Ears: No lesions. Nose appeared normal. Throat: No exudate or erythema. NECK: Supple. No JVD, no carotid bruit. No lymphadenopathy or thyromegaly. LUNGS: Decreased breath sounds but clear to auscultation. Percussion note normal. Chest symmetrical. HEART: S1, S2, no S3. No murmurs. No cyanosis or clubbing. No ascites. Pulses: Dorsalis pedis and posterior tibial pulses +1 to +2 bilaterally. ABDOMEN: Soft. Nontender. Bowel sounds active. No CVA tenderness. No mass felt. EXTREMITIES: No edema. Full range of motion of all extremities, equal. NEUROLOGIC: No focal deficit. Cranial nerves II through XII are grossly intact. No headache, no double vision or headache. SKIN: Not dry. Intact. Turgor - normal. LYMPHATIC: No palpable lymph nodes/no lymphedema. MUSCULOSKELETAL: Normal joints with no swelling. Muscle tone is normal. LABS: Hgb 14, hct 43, WBC 5,000 normal differential, potassium 3.0, AST and ALT 114, 120 respectively more or less three times the normal. Alkaline phosphatase elevated 152. GFR 81cc per minute. TSH, T4 normal. A1c 5. ASSESSMENT: 1. Atrial fib with rapid ventricular response. CHADS VASC SCORE 2. 2. Hypertension 3. Strong family history of heart disease 4. Obesity with BMI 35. 5. History of depression 6. Lipid profile unknown RECOMMENDATIONS: 1. Start Cardizem drip 2. Discussed with ER attending to keep systolic blood pressure close 130, rate to be near 100. 3. The patient has already been given 15mg IV Cardizem push 4. Metoprolol 50mg has been given in the ER. 5. According to the attending that I will be seeing this patient in person at 10:00 in the morning. I am available for phone contact. IBIS
[2023-01-13 14:01] VITALS: BP 115/92; RESP 22
--- NOTE | 2023-01-13 14:52 | CONS ---
DATE OF SERVICE: 01/12/23 CONSULT FOLLOWUP SUBJECTIVE: 52 year old white female hospitalized with atrial fibrillation with rapid ventricular response with palpitations and shortness of breath. The patient's condition seems to have improved with rate being 80-100 per minute now. The patient is on Cardizem drip. She is on Metoprolol and was given 50mg in the morning. Instructed the patient to be given 60mg Cardizem PO. The patient's EKG is reviewed and no changes. She has atrial flutter with rate of 80-100 per minute. The patient's blood pressure fluctuates from 110 to 140. REVIEW OF SYSTEMS: CONSTITUTIONAL: No night sweats. No fatigue, malaise, lethargy. No fever or chills. HEENT: Eyes: No visual changes. No eye pain. No eye discharge. ENT: No runny nose. No epistaxis. No sinus pain. No sore throat. No odynophagia. No ear pain. No congestion. RESPIRATORY: No cough, no congestion. No hemoptysis. CARDIOVASCULAR: No angina symptoms. No CHF symptoms. No atypical chest pain for CAD. No palpitations. No shortness of breath. GASTROINTESTINAL: No abdominal pain. No nausea or vomiting. No diarrhea or constipation. No hematemesis. No hematochezia. GENITOURINARY: No urgency. No frequency. No dysuria. No hematuria. No obstructive symptoms. No discharge. No pain. No significant abnormal bleeding. MUSCULOSKELETAL: No musculoskeletal pain. No joint swelling. No arthritis. NEUROLOGICAL: No headache. No neck pain. No syncope. No seizures. No dizziness. PSYCHIATRIC: Not anxious. No depression. No suicidal thoughts. No homicidal thoughts. SKIN: No rash. No lesions. No wounds. ENDOCRINE: No unexplained weight loss. No weight gain. HEMATOLOGIC/LYMPHATIC: No anemia. No purpura. No petechiae. No prolonged or excessive bleeding. No palpable lymph nodes. PHYSICAL EXAMINATION: GENERAL. The patient is oriented to time, place and person. VITAL SIGNS: Temperature 97.3, pulse 88, respiratory rate 18, blood pressure 142/99 and pulse ox 95%. HEENT: Head normocephalic, atraumatic. Eyes: Extraocular muscles are intact. Pupils are equal, round and reactive to light and accommodation. Ears: No lesions. Nose appeared normal. Throat: No exudate or erythema. NECK: Supple. No JVD, no carotid bruit. No lymphadenopathy or thyromegaly. LUNGS: Decreased breath sounds but clear to auscultation. Percussion note normal. Chest symmetrical. HEART: S1, S2, no S3. No murmur. No cyanosis or clubbing. No ascites. Pulses: Dorsalis pedis and posterior tibial pulses +1 to +2 bilaterally. ABDOMEN: Soft. Nontender. Bowel sounds active. No CVA tenderness. No mass felt. EXTREMITIES: No edema. Full range of motion of all extremities, equal. NEUROLOGIC: No focal deficit. Cranial nerves II through XII are grossly intact. No headache, no double vision or headache. SKIN: Not dry. Intact. Turgor - normal. LYMPHATIC: No palpable lymph nodes/no lymphedema. MUSCULOSKELETAL: Normal joints with no swelling. Muscle tone is normal. LABS: Hgb 12, Hct 39, WBC 4,300 normal differential, creatinine 0.6, BUN 9, potassium 3.6. AST and ALT slightly lower than yesterday along with Alkaline phosphatase. Troponin negative. ASSESSMENT: 1. Atrial fibrillation/flutter with rate 80-100 per minute 2. Hypertension 3. Depression 4. Strong family history of heart disease RECOMMENDATIONS: 1. The patient explained about atrial fibrillation complications 2. The patient explained about Eliquis and complications with it like GI, intracranial bleed 3. Has history of anemia, at present time her hgb is 12.3 with hct 39. The reason for anemia was not GI blood loss according to the patient but she has stopped taking any nonsteroidal antiinflammatory because it causes her to have gastritis. She takes quite a few Tylenol 4. Explained about liver profile and abnormality and advised to quit drinking and advised to cut down on number of Tylenol intake because of abnormal liver could be fatty liver. 5. Hepatitis profile and ultrasound of the liver to be done. 6. Echocardiogram was done which showed borderline LVH with enlarged LA cavity which was 5.1cm, mildly hypokinetic septal, normal LV size, ejection fraction was 45%. Explaining all these the findings, considering the patient's sex which is female along with hypertention, CHADS VASC score is 2, has abnormal LV function and enlarged LA cavity I recommend that the patient be on Eliquis for now, 5mg twice a day. Intracranial bleed, GI bleed discussed as a complication of Eliquis. The patient is already on Amiodarone 200mg given in the morning and 200mg is going to be given at 6:30pm. Case discussed with Nurse Practitioner, Gloria. IBIS
--- NOTE | 2023-01-13 15:45 | DCSUM ---
Admission Date Admission Date: 01/11/23 Discharge Date Discharge Date: 01/13/23 Admission Diagnosis Admission Diagnosis: A fib RVR Discharge Diagnosis Discharge Diagnosis: 1. A fib, RVR, new onset, improved 2. Elevated LFTs 3. History of iron deficiency anemia Hospital Provider Hospital Provider: INEZ WILKERSON PA-C, [facility] Primary Care Physician Primary Care Physician: GABINO SELLERS Consulting Physician Consulting Physician: Dr. Marisa Olivares, cardiology Summary of History and Physical Summary of History and Physical: Patient is a 52 year old female with pmhx of iron deficiency anemia, depression, anxiety, vitamin d deficiency who presented to ER with 1 week history of shortness of breath and palpitations on and off. It was progressively getting worse since /Thursday. She thought her iron was low again and trying to wait it out to see her PCP this week. She also recently had bronchitis and thought it may be due to that. She denies chest pain, edema, or personal cardiac history. In the ER she was found to be in A fib RVR HR 150s. She was given cardizem 15 mg IVP then Metoprolol 25 PO and lovenox 40. Was later started on Cardizem drip. CXR negative. Labs unremarkable. K+ on low end of normal. Dr. Reji Olivares was consulted from ER and will see patient. Patient admitted to SCU. This AM patient is feeling much better. HR in 80s. Nurse tried to wean Cardizem drip down but her HR went to above 100, cardizem drip increased back to 8. Pt denies cp, sob, palpitations this morning. Eating breakfast. LFTs mildly elevated, unable to get US until tomorrow. Patient has concerns regarding staying tonight due to having pets at home. Hospital Course Subjective: On 01/12 patient was on Cardizem drip, Cardizem p.o., metoprolol p.o. and amiodarone 200 mg every 6 hours p.o. per cardiology recommendations. Final report not yet in system, however, echo showed borderline LVH and enlarged left atrial cavity of 5.1 cm. She had a mildly hypokinetic septum and EF was about 45%. Because of these findings cardiology felt her Chadvasc score was 2 and indicated Eliquis 5 mg twice a day. On 01/13 she was able to be weaned off of the Cardizem drip and her heart rate was within normal range. But at times became elevated with any exertion. Patients shortness of breath and palpitations greatly improved. Her LFTs were mildly elevated. Hepatitis panel is still pending at time of discharge. Ultrasound did not show any acute findings however does appear she has a fatty liver. PFTs performed however report not available yet. Patient expressed throughout stay concerned about her animals at home. She ultimately decided she wanted to leave to go home and check on them. She states she has no other family members who could check on them for her. Discussed risks of leaving AMA including worsening cardiac condition and or . She has the mental capacity to make decisions for herself and is alert and oriented to person place and time. She still feels that she would like to leave. We will send in her Cardizem, metoprolol, Eliquis, and amiodarone for her. Eliquis voucher for 30 days given. She has means to obtain a blood pressure cuff at home. She understands she can return to ER at any time. And she has a follow-up with PCP scheduled for tomorrow. 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 Appearance: Pleasant, No Apparent Distress, Alert and Well-appearing HEENT: MMM and Supple CVS: No Murmur, No Rubs, No Gallop and Other (Irregularly irregular ) Abdomen: Soft, Non-Tender and No Distention Respiratory: No Dyspnea Extremities: No Edema Vital Signs: Most Recent Vital Signs Temperature 96.7 F L 01/13/23 12:00 Temperature Source Temporal Artery Scan 01/13/23 12:00 Temperature Source Infrared 01/11/23 15:21 Pulse Rate 84 01/13/23 14:00 Respiratory Rate 22 H 01/13/23 14:00 Blood Pressure 115/92 H 01/13/23 14:00 Blood Pressure Mean 99 01/13/23 14:00 Blood Pressure Left Arm 124/92 01/11/23 20:21 Blood Pressure Location Left Arm 01/13/23 14:00 Blood Pressure Position Sitting 01/13/23 14:00 O2 Sat by Pulse Oximetry 96 01/13/23 14:00 Oxygen Delivery Method Room Air 01/13/23 14:00 Oxygen Flow Rate 2 01/12/23 05:04 Height 5 ft 9 in 01/11/23 20:21 Weight 246 lb 01/11/23 20:21 Telemetry Type Bedside Monitor 01/13/23 13:00 Telemetry Monitoring Continues 01/13/23 13:00 Irregular Telemetry Rate (Approximate) 80-90 BPM 01/13/23 13:00 Telemetry Heart Rate 72 01/13/23 01:00 Telemetry SPO2 95 01/13/23 01:00 EKG QRS Interval 0.03 L 01/13/23 13:00 EKG QT Interval 0.19 L 01/12/23 19:00 Telemetry Strip Reading AFlutter/ Afib 01/13/23 13:00 Imaging: EXAM: SINGLE VIEW CHEST. HISTORY: Shortness of breath COMPARISON: None. FINDINGS: The heart is on the upper limits of normal in size. Pulmonary vascularity is within normal limits. A small right pleural effusion is seen. Bibasilar interstitial opacities are seen. No evidence of pneumothorax is seen. Osseous structures are unremarkable. IMPRESSION: Small right pleural effusion. Bibasilar interstitial opacities which can be seen with interstitial edema. EXAM: ULTRASOUND ABDOMINAL COMPLETE HISTORY: Elevated liver enzymes. TECHNIQUE: Sonography of the abdomen was performed. Images were obtained and stored in a permanent archive. Color Doppler images of the main portal vein were also obtained. COMPARISON: None. FINDINGS: Pancreas: Normal sonographic appearance of the head and body. Tail is partially obscured. Liver: Enlarged with diffusely hyper echogenic parenchyma. No focal lesion. - Normal antegrade flow within the main portal vein. Biliary: No duct dilation. Common bile duct measures 4-5 mm. Post cholecystectomy. Spleen: No splenomegaly. No lesions. Right Kidney: No hydronephrosis. No lesions. No calculus. Left Kidney: No hydronephrosis. No lesions. No calculus. IVC: Patent on color Doppler. No abnormality on stratton scale image. Aorta: No aneurysmal dilatation in visualized portions. The distal aorta and perfusion obscured by bowel gas shadowing. Ascites: None. Urinary bladder: Bladder wall is thickened measuring 6 mm. IMPRESSION: Enlarged hyper echogenic liver consistent with steatosis. Thickened urinary bladder wall could be due cystitis. Correlate with urinalysis. Echo report: Final report pending. Lab Results Last 24 Hours: 01/13/23 04:50 WBC 5.69 RBC 4.10 L Hgb 12.5 Hct 39.6 MCV 96.6 MCH 30.5 MCHC 31.6 L RDW Coeff of Gabriel 15.9 H Plt Count 257 Immature Gran % (Auto) 0.4 Neut % (Auto) 65.3 Lymph % (Auto) 22.5 Amelia % (Auto) 9.7 Eos % (Auto) 1.4 Baso % (Auto) 0.7 Neut # (Auto) 3.7 Lymph # (Auto) 1.3 Amelia # (Auto) 0.6 Eos # (Auto) 0.1 Baso # (Auto) 0.0 Immature Gran # (Auto) 0.0 Sodium 132.9 L Potassium 4.08 Chloride 104.4 Carbon Dioxide 18.9 L D Anion Gap 13.68 BUN 13.9 Creatinine 0.82 Estimated GFR (MDRD) 73.00 BUN/Creatinine Ratio 16.95 Glucose 118.1 H Calcium 8.05 L Total Bilirubin 1.38 H AST 197.7 H D ALT 149.2 H D Alkaline Phosphatase 120.8 Total Protein 6.19 L Albumin 3.43 L Globulin 2.76 Albumin/Globulin Ratio 1.24 Discharge Instructions Discharge Planning: AMA Home today. Follow up with Gabino Sellers 10AM tomorrow 01/14/23. [facility]: [facility] Activity: As tolerated Diet: Heart healthy Return to ER with any worsening symptoms With any nose bleeds, blood in stool, etc call pcp or come to ER due to blood thinner Discharge Planning > 80 minutes Medications Given This Visit: Medications Generic Name Dose Route Start Last Admin Trade Name Freq PRN Reason Stop Dose Admin Acetaminophen 650 mg 01/11/23 20:24 Acetaminophen 325 Mg Tablet PO Q4H PRN Pain Apixaban 5 mg 01/12/23 21:00 01/13/23 10:02 Apixaban 5 Mg Tab PO 5 mg BID JOSE Administration Bupropion HCl 300 mg 01/12/23 11:30 01/13/23 10:01 Bupropion Hcl 150 Mg Tab.Er.24h PO 300 mg DAILY JOSE Administration Diltiazem HCl 60 mg 01/12/23 10:15 01/13/23 10:01 Diltiazem Hcl 60 Mg Tablet PO 60 mg Q12HR JOSE Administration Gabapentin 300 mg 01/12/23 11:00 01/13/23 15:09 Gabapentin 300 Mg Capsule PO 300 mg TID JOSE Administration Metoclopramide HCl 5 mg 01/12/23 14:01 01/12/23 14:16 Metoclopramide Hcl 10 Mg/2 Ml IVP 5 mg Q6HR PRN Administration Nausea / Vomiting Metoprolol Tartrate 50 mg 01/12/23 09:00 01/13/23 10:02 Metoprolol Tartrate 50 Mg Tablet PO 50 mg BID JOSE Administration Non-Formulary Medication 50 mg 01/12/23 11:00 01/13/23 10:03 Desvenlafaxine Succinate [Pristiq] PO Not Given DAILY JOSE Omeprazole 20 mg 01/13/23 06:30 01/13/23 05:43 Omeprazole 20 Mg Capsule.Dr PO 20 mg QDAC JOSE Administration Ondansetron HCl 4 mg 01/11/23 20:24 01/12/23 11:02 Ondansetron Hcl/Pf 4 Mg/2 Ml Sdv IVP 4 mg Q6H PRN Administration Nausea / Vomiting Pantoprazole Sodium 40 mg 01/12/23 14:05 01/13/23 10:01 Pantoprazole Sodium 40 Mg Vial IVP 40 mg DAILY JOSE Administration Medications Given This Visit: Medications at Discharge (Home Meds & RX) desvenlafaxine succinate 50 mg tablet,extended release 24 hr (Pristiq) 50 mg PO DAILY 01/11/23 gabapentin 300 mg capsule 300 mg PO TID 01/11/23 omeprazole 20 mg capsule,delayed release 20 mg PO DAILY 01/11/23 bupropion HCl 300 mg 24 hr tablet, extended release (Wellbutrin XL) 300 mg PO DAILY 01/12/23 amiodarone 200 mg tablet 200 mg PO DAILY #5 tabs 01/13/23 apixaban 5 mg tablet (Eliquis) 5 mg PO BID #60 tabs 01/13/23 diltiazem HCl 60 mg tablet 60 mg PO BID #10 tabs 01/13/23 metoprolol tartrate 50 mg tablet 50 mg PO BID #10 tabs 01/13/23 Discharge Plan Discharge Discharge Orders: Discharge Patient (ONCE); Ordered 01/13/23 Ordered By: INEZ WILKERSON Activity Restrictions/Additional Instructions: AMA Home today. Follow up with Gabino Sellers 10AM tomorrow 01/14/23. [facility]acy: [facility] Activity: As tolerated Diet: Heart healthy Return to ER with any worsening symptoms With any nose bleeds, blood in stool, etc call pcp or come to ER due to blood thinner Instructions: A-fib (Atrial Fibrillation) (GEN), Blood Thinners (GEN) Patient Disposition: AMA Prescriptions: New metoprolol tartrate 50 mg Tablet 50 mg PO BID Qty: 10 0RF diltiazem HCl 60 mg Tablet 60 mg PO BID Qty: 10 0RF Eliquis 5 mg Tablet 5 mg PO BID Qty: 60 0RF amiodarone 200 mg tablet 200 mg PO DAILY Qty: 5 0RF Rx Instructions: See PCP for refills Continued omeprazole 20 mg capsule,delayed release(DR/EC) 20 mg PO DAILY desvenlafaxine succinate [Pristiq] 50 mg tablet extended release 24 hr 50 mg PO DAILY gabapentin 300 mg capsule 300 mg PO TID bupropion HCl [Wellbutrin XL] 300 mg tablet extended release 24 hr 300 mg PO DAILY Did you review [facility] for ALL controlled substances?: Not Applicable Discussed opioids are addictive and Narcan is available by prescription or from pharmacy.: No Condition: Stable
[2023-01-13] MEDS ORDERED: PRISTIQ ER PO SCH (16:00)
[2023-01-14 07:27] LABS: HBsAgSCREEN Negative (Negative); HCV ANTIBODY Non Reactive (Non Reactive); HEP A AB, IgM Negative (Negative); HEP B CORE Ab, IgM Negative (Negative)
--- NOTE | 2023-01-15 08:38 | ECHO2D ---
Date of Exam: 01/12/2023 Ordering Physician: FARSHAD SELLERS DNP Room #: SCU1 Reason for Echo: ATRIAL FIBRILLATION WITH RVR M-Mode Normal Adult Results LV Dimensions Normal Adult Results AoV Opening excursions >1.6 >1.6 LVEDD-base- 3.5-5.8 4.4 Ao root dimensions 2.0-3.7 3.0 LVESD-base- 3.1-4.6 L. Atrium dimensions 1.9-3.8 5.1 Post. Wall thickness 0.8-1.1 1.1 IV septum (thickness) 0.7-1.2 1.2 Post. Wall excursion 0.72-1.3 NORMAL Septal motion 0.5 Systolic motion R. Ventricular cavity 1.5-2.0 NORMAL LVEF 60% 45-50% Paradoxical septal wall motion NORMAL 2-D : ENLARGED LEFT ATRIAL CAVITY--HYPOKINETIC SEPTAL WALL, VALVES--NORMAL, NO EFFUSION, NO THROMBUS, LEFT VENTRICLE SIZE--NORMAL M-MODE: MV: NORMAL AV: NORMAL TV: NORMAL PV: CHAMBER SIZE: ENLARGED LEFT ATRIAL CAVITY WALL MOTION: HYPOKINETIC SEPTAL WALL PERICARDIUM: NORMAL INTERPRETATION: 1. LEFT VENTRICLE HYPERTROPHY WITH ENLARGED LEFT ATRIAL CAVITY (5.1 CM) 2. HYPOKINETIC SEPTUM WALL EJECTION FRACTION 45-50% 3. VALVES--NORMAL MTDD
--- NOTE | 2023-01-16 13:59 | CONS ---
DATE OF SERVICE: 01/14/23 CONSULT FOLLOWUP SUBJECTIVE: The patient was in care. Reason for consult is atrial fibrillation and shortness of breath. Her condition has improved. She has practically no complaints. REVIEW OF SYSTEMS: CONSTITUTIONAL: No night sweats. No fatigue, malaise, lethargy. No fever or chills. HEENT: Eyes: No visual changes. No eye pain. No eye discharge. ENT: No runny nose. No epistaxis. No sinus pain. No sore throat. No odynophagia. No ear pain. No congestion. RESPIRATORY: No cough, no congestion. No hemoptysis. CARDIOVASCULAR: No angina symptoms. No CHF symptoms. No atypical chest pain for CAD. No palpitations. No shortness of breath. GASTROINTESTINAL: No abdominal pain. No nausea or vomiting. No diarrhea or constipation. No hematemesis. No hematochezia. GENITOURINARY: No urgency. No frequency. No dysuria. No hematuria. No obstructive symptoms. No discharge. No pain. No significant abnormal bleeding. MUSCULOSKELETAL: No musculoskeletal pain. No joint swelling. No arthritis. NEUROLOGICAL: No headache. No neck pain. No syncope. No seizures. No dizziness. PSYCHIATRIC: Not anxious. No depression. No suicidal thoughts. No homicidal thoughts. SKIN: No rash. No lesions. No wounds. ENDOCRINE: No unexplained weight loss. No weight gain. HEMATOLOGIC/LYMPHATIC: No anemia. No purpura. No petechiae. No prolonged or excessive bleeding. No palpable lymph nodes. PHYSICAL EXAMINATION: GENERAL: The patient is oriented to time, place and person. HEENT: Head normocephalic, atraumatic. Eyes: Extraocular muscles are intact. Pupils are equal, round and reactive to light and accommodation. Ears: No lesions. Nose appeared normal. Throat: No exudate or erythema. NECK: Supple. No JVD, no carotid bruit. No lymphadenopathy or thyromegaly. LUNGS: Decreased breath sounds but Clear to auscultation. Percussion note normal. Chest symmetrical. HEART: Irregular rate 80 per minute. S1, S2, no S3. No murmur. No cyanosis or clubbing. No ascites. Pulses: Dorsalis pedis and posterior tibial pulses +1 to +2 bilaterally. ABDOMEN: Soft. Nontender. Bowel sounds active. No CVA tenderness. No mass felt. EXTREMITIES: No edema. Full range of motion of all extremities, equal. NEUROLOGIC: No focal deficit. Cranial nerves II through XII are grossly intact. No headache, no double vision or headache. SKIN: Not dry. Intact. Turgor - normal. LYMPHATIC: No palpable lymph nodes/no lymphedema. MUSCULOSKELETAL: Normal joints with no swelling. Muscle tone is normal. LABS: All acceptable. Lipid profile normal. A1c less than 6. EKG showed atrial fibrillation/flutter, rate is 80 per minute. ASSESSMENT: 1. Atrial fibrillation, new onset duration 4-5 days. RANI VASC SCORE 2 with evidence of LV dysfunction with ejection fraction 45% and LA cavity of 5.1cm size. The patient has mildly septum, valvular structures are normal. 2. Hypertension 3. Strong family history of heart disease 4. Obesity with BMI of 36. 5. History of smoking 6. Heroine use and amphetamine use which is in the form of Adderall RECOMMENDATIONS: 1. The patient was seen and examined and was following recommendation was given to her along her discussion with Nurse Practitioner. 2. The patient was strongly advised to give up smoking, marijuana use also decrease the use of Adderall and stimulants 3. Continue Cardizem 60mg twice a day, Metoprolol 50mg PO QAM 4. Eliquis 5mg twice a day. Education about Eliquis side effects with intracranial and GI bleed discussed. Nonsteroidal antiinflammatory while on Eliquis 5. Will continue Amiodarone 200mg PO QAM 6. The patient is being referred to Distribution Warehouse Manager. The patient is agreeable 7. The patient is to see primary care as soon as possible 8. The patient was advised to stay 24 hours more 9. BMI normal 23 +/- 2 advised weight loss, discussed CONDITION: Stable MTDD
--- NOTE | 2023-01-16 14:00 | PN ---
The patient's first day Extensive level 5 consult. Rest of the days extensive. MTDD
== END 2023-01-13 16:26 | disposition left against medical advice (07) | DRG 309 ==
LOC: ED 15:16 → SCU 18:08
PROVIDERS: ADMIT Hospitalist; ATTEND Physician Assistant